=== PATIENT | male | born 1940 | race African-American/Black ===

== ENCOUNTER 2024-05-17 12:02 | Inpatient (IN) | payer OTHER ==
[2024-05-17] VITALS (30 sets, daily range): BP systolic 75–168; BP diastolic 49–102
[~2024-05-17] VITALS: Ht 182.9 cm; Wt 90.0 kg
--- NOTE | 2024-05-17 12:02 | NUR ---
PT TO ROOM VIA EMS WITH GAWESLY X2
[2024-05-17] MEDS ORDERED: SODIUM CHLORIDE 0.9% 1,000 ML IV ONE ×3 (12:25→13:25)
[2024-05-17 13:04] LABS: BASO% 0.1 % (0-3); HEMATOCRIT 41.2 % (39.0-50.0); HEMOGLOBIN 13.6 g/dl (14.0-18.0); IMMATURE GRANULOCYTES 0.3 % (0.0-5.0); LYMPH% 2.6 % (15-41); MEAN CELL VOLUME 91.6 fL CALC (80.0-100.0); MEAN CORPUSCULAR HGB 30.2 pG CALC (26.0-32.0); MONO% 0.9 % (2-13); NEUT# 14.41 thou/uL (1.82-7.42); NEUT% 96.1 % (42-76); RED BLOOD COUNT 4.5 mill/uL (4.70-6.10); RED CELL DISTRI WIDTH 13.1 % (11.5-15.5)
[2024-05-17 13:14] LABS: ALBUMIN 4.1 g/dL (3.2-5.0); CREATININE 1.6 mg/dL (0.7-1.3); POTASSIUM 4.8 mmol/l (3.5-5.1); TOTAL PROTEIN 7.7 g/dL (6.3-8.2)
[2024-05-17] MEDS ORDERED: Levofloxacin 750 mg Premix 150 ML IV ONE (13:25)
[2024-05-17] MEDS ORDERED: ACETAMINOPHEN 500 MG TAB PO ONE (13:40)
[2024-05-17] MEDS ORDERED: ALBUTEROL SUL0.083 % IN (14:29)
[2024-05-17] MEDS ORDERED: PEPCID40 MG PO (14:33)
[2024-05-17] MEDS ORDERED: LEVOTHYROXIN112 MC1 PO (14:35)
[2024-05-17] MEDS ORDERED: ASPIRINCHW 81MG PO (14:35)
[2024-05-17] MEDS ORDERED: LISINOPRIL40 MG PO (14:36)
[2024-05-17] MEDS ORDERED: METFORMIN HCL1000 MG PO (14:37)
[2024-05-17] MEDS ORDERED: AMLODIPINE BESY10 MG PO (14:37)
[2024-05-17] MEDS ORDERED: FUROSEMIDE20 MG PO (14:38)
[2024-05-17] MEDS ORDERED: KLOR-CON M1515 MEQ PO (14:39)
[2024-05-17] MEDS ORDERED: MONTELUKAST SOD10 MG PO (14:39)
[2024-05-17] MEDS ORDERED: ALVESCO160 MCG/AC (14:41)
[2024-05-17] MEDS ORDERED: GLIPIZIDE10 M3 PO (14:41)
[2024-05-17] MEDS ORDERED: LEVALBUTER1.25 MG/3 (14:42)
[2024-05-17] MEDS ORDERED: [UNRECOGNIZED DRUG - OTHER] OD (14:53)
[2024-05-17] MEDS ORDERED: NOVOLIN N100 UNIT (14:54)
[2024-05-17] MEDS ORDERED: LEVALBUTEROL HCL 1.25 MG/3 ML VIAL IN ONE (16:10)
--- NOTE | 2024-05-17 16:19 | NUR ---
PT TEMP ELEVATED, PROVIDER NOTIFIED.
[2024-05-17] MEDS ORDERED: IBUPROFEN 800 MG/TAB PO ONE (16:20)
[2024-05-17] MEDS ORDERED: ACETAMINOPHEN 325 MG/TAB PO PRN (16:30)
[2024-05-17] MEDS ORDERED: MAGNESIUM HYDROXIDE 30 ML UDC PO PRN (16:30)
[2024-05-17] MEDS ORDERED: SODIUM CHLORIDE 0.9% 1,000 ML IV PRN (16:30)
[2024-05-17] MEDS ORDERED: DEXTROSE 250 ML IV PRN (16:40)
[2024-05-17] MEDS ORDERED: INSULIN LISPRO 100 UNITS/ML ML SC SCH (17:00)
--- NOTE | 2024-05-17 17:55 | NUR ---
PT REPORT TO JOSE DAVIS.
[2024-05-17] MEDS ORDERED: PIPERACILLIN Sodium-Tazobactam 3.375 GM in SODIUM CHLORIDE 0.9% 100 ML IV SCH (18:00)
--- NOTE | 2024-05-17 18:20 | NUR ---
PT TRANSPORTED VIA WC TO ICU ROOM 2. VSS ON PORTABLE MONITOR. TRANSFERRED CARE OF PT.
--- NOTE | 2024-05-17 18:53 | NUR ---
PATIENT ARRIVED TO THE UNIT VIA WHEELCHAIR ACOMPAINED BY 2 GUARDS. PATIENT ALERT AND ORIENTED X 3. DENIES PAIN, CURRENTLY, HOWEVER STATES HE HAS BEEN HAVING INTERMITTENT CHEST PAIN WITH COUGH. PATIENT ORIENTED TO ROOM AND CALL COOK SYSTEM. SAFETY MEASURES IN PLACE INCLUDING BED IN LOW POSITION AND CALL LIGHT RESTING IN L HAND. WILL CONTINUE TO MONITOR PATIENT'S TEMPERATURE AND HR.
[2024-05-17] MEDS ORDERED: ALBUTEROL SULFATE 2.5 MG VIAL IN SCH (19:00)
[2024-05-17] MEDS ORDERED: [UNRECOGNIZED DRUG - REMARK] PO (19:25)
--- NOTE | 2024-05-17 20:00 | NUR ---
pt assessed, pt had a wet gown and wet paints from using urinal pt , unshakled by guard and was able to stand and remiove his pant, they were placed in a bag. pt given wash clothes with soap and water [pt washed himself sitting at bedside. new gown given . lungs clear over diminished in bases, posteriorly. and anteriorly. IV with NS going at 100cc/hr per order. clear yellow urine in urinal emptied. medicated for generalized boy opain with tylenol. pt states he has a cough non noted. robotussin administered . New sheets. bedding . call estrada and water within reach . all needs met, afebrile warm pink well perfused. new BOP cuff on left arm IV in right arm . 2 guards at bedside and pt shakled by the feet. all needs met.
[2024-05-17] MEDS ORDERED: ENOXAPARIN SODIUM 40 MG/0.4 ML SYR SC SCH (21:00)
[2024-05-17] MEDS ORDERED: DEXTROMETHORPHAN-Guaifenesin 20-200 MG/10 ML UDC PO PRN (21:00)
--- NOTE | 2024-05-17 22:00 | NUR ---
pt rounded on no change in assessment all needs met.
[2024-05-18] VITALS (25 sets, daily range): BP systolic 97–156; BP diastolic 42–92
--- NOTE | 2024-05-18 | NUR ---
assessment unchanged abx hung , ivf NS at 100cc/hr , successfully voiding in the urinal. 2 guards at bedside NSR on monitor, all needs met. call estrada within reach. all safety measures in place.
--- NOTE | 2024-05-18 02:00 | NUR ---
assessment unchanged, 2 guards at bedside. IVF going at 100cc/ hr pt eresting with eyes closed. all needs met call estrada within reach.
--- NOTE | 2024-05-18 04:00 | NUR ---
pt assessed assessment unchanged. IVF NS gouign at 100cc / hr. pt resting with eyes closed. pt awajken easily whgen asked how he is feeling if he has paqin , no pain . all needs met. water at bedside. call estrada within reach . 2 guards at bedside . SR. all safety measures in place.
[2024-05-18 05:39] LABS: HEMATOCRIT 35.9 % (39.0-50.0); MEAN CELL VOLUME 92.8 fL CALC (80.0-100.0); MEAN CORPUSCULAR HGB CONC 33.4 g/dL CAL (32.0-36.0); RED BLOOD COUNT 3.87 mill/uL (4.70-6.10); RED CELL DISTRI WIDTH 13.5 % (11.5-15.5)
[2024-05-18 05:55] LABS: BILIRUBIN, TOTAL 0.7 mg/dL (0.2-1.3); MAGNESIUM 1.9 mg/dL (1.6-2.3); POTASSIUM 4.1 mmol/l (3.5-5.1)
[2024-05-18] MEDS ORDERED: LEVOTHYROXINE SODIUM 112 MCG/TAB PO SCH (06:00)
--- NOTE | 2024-05-18 06:00 | NUR ---
rounded on pt nmedicated , all needs met
[2024-05-18 06:02] LABS: ALBUMIN 2.7 g/dL (3.2-5.0); TOTAL PROTEIN 5.4 g/dL (6.3-8.2)
--- NOTE | 2024-05-18 07:47 | NUR ---
PATIENT SITTING UP IN BED. 2 GUARDS AT BEDSIDE. PATIENT ALERT AND ORIENTED X 4. C/O INT CHEST PAIN OF A 8 D/T COUGHING. NO CURRENT PAIN AT THIS TIME. LUNG WHEEZES/COARSE NOTED TO ASCULTATION. BREATHING LABORED ON 4L NC. LAST BM 05/16. GLU 242. ST ON THE MONITOR. SAFETY MEASURES IN PLACE INCLUDING BED IN LOW POSITION AND CALL LIGHT RESTING NEXT TO L HAND. NO APPARENT DISTRESS NOTED. WILL CONTINUE TO MONITOR PATIENT'S TEMPERATURE AND SOB W/ EXERTION.
--- NOTE | 2024-05-18 08:58 | NUR ---
RT AT BEDSIDE. PATIENT CHANGED TO HFNC AT 8L HUMIDIFIED.
[2024-05-18] MEDS ORDERED: ASPIRIN 81 MG/TAB PO SCH (09:00)
--- NOTE | 2024-05-18 09:00 | NUR ---
PRELIMINARY BLOOD CULTURE RESULTS REPORTED TO DR BARAHONA. PT ON ZOSYN AND VANCO. FOLLOW UP WITH FINAL RESULTS
--- NOTE | 2024-05-18 10:00 | NUR ---
PATIENT LYING IN BED ON L SIDE. GUARDS AT BEDSIDE. VITAL SIGNS STABLE. WILL CONTINUE WITH PLAN OF CARE.
--- NOTE | 2024-05-18 10:32 | NUR ---
CALL RECEIVED FROM BIANCA GUERRERO AT [phone] FOR UPDATE. UPDATE GIVEN. PER STAFF, THE [facility] AT THE FACILITY IS CLOSED SO IF PATIENT IS TO BE DISCHARGED WITH OXYGEN, PLEASE NOTIFY STAFF HE WILL HAVE TO BE TRANSFERRED TO ANOTHER FACILITY.
[2024-05-18] MEDS ORDERED: PIPERACILLIN Sodium-Tazobactam 4.5 GM in SODIUM CHLORIDE 0.9% 100 ML IV SCH (12:00)
[2024-05-18] MEDS ORDERED: PIPERACILLIN Sodium-Tazobactam 3.375 GM in SODIUM CHLORIDE 0.9% 100 ML IV SCH (12:00)
--- NOTE | 2024-05-18 12:15 | NUR ---
ROUNDING COMPLETE. PATIENT NOTED TO BE AFEBRILE AT 101.4, WILL MEDICATE ACCORDING TO EMAR. DENIES ANY CONCERNS AT THIS TIME. WILL CONTINUE WITH PLAN OF CARE.
--- NOTE | 2024-05-18 12:28 | NUR ---
S: BRADLEY NASCIMENTO is a 83 M who presents with ACUTE RESPIRATORY FAILURE WITH HYPOXIA, SEVERE SEPSIS, PNEUMONIA INVOLVING RIGHT LUNG, AND GRAM POSITIVE BACTEREMIA. He has a history of DIABETES, ASTHMA, HYPOTHYROIDISM, AND HYPERTENSION. All medications in patient's chart were reviewed. O: VS: BP 120/59, P 106, RR 28,T 101.4 F W 90kg, HT72 IN, Scr= 1,CrCl= 67.7ml/min A: Blood culture PENDING IS SHOWING 4/4 G+COCCI SPUTUM CULTURE IS PENDING P: Patient is on ZOSYN 4.5GM IV Q6H. Vancomycin ordered for pharmacy to dose. Start Vancomycin 1GM IV Q12H. Vancomycin trough is drawn before the 4th dose on 05/20/24 @0000. Vancomycin goal trough is between 15-20 mcg/ml. Pharmacy will follow and or advise on antibiotics use as needed.
[2024-05-18] MEDS ORDERED: VANCOMYCIN HCL 1 GM in SODIUM CHLORIDE 0.9% 250 ML IV SCH (12:30)
--- NOTE | 2024-05-18 13:57 | NUR ---
PATIENT TEMP DECREASED FROM 100.4 TO 100. DENIES CONCERNS AT THIS TIME. WILL CONTINUE TO MONITOR.
--- NOTE | 2024-05-18 16:37 | NUR ---
PATIENT LYING IN BED. GUARDS AT BEDSIDE. ST ON THE MONITOR. 100 mL OF YELLOW URINE NOTED IN URINAL. TEMPERATURE ELEVATED AT 101.3, DR. MOURA NOTIFIED. VERBAL GIVEN FOR MOTRIN 600MG ONE TIME DOSE. NO OTHER CONCERNS AT THIS TIME. WILL CONTINUE TO MONITOR TEMPERATURE.
[2024-05-18] MEDS ORDERED: IBUPROFEN 600 MG/TAB PO SCH (17:00)
--- NOTE | 2024-05-18 18:24 | NUR ---
ROUNDING COMPLETE. PATIENT DENIES CONCERNS AT THIS TIME. TEMP REASSESSMENT 99. WILL CONTINUE TO MONITOR
--- NOTE | 2024-05-18 19:50 | NUR ---
CPT DONE TO POSTERIOR RIGHT LUNG MURCIA. NO DISTRESSED NOTED. NON-PRODUCTVE COUGH
--- NOTE | 2024-05-18 20:00 | NUR ---
pt assessed , pt sleeping , awaken easily to voice. 2 guards at bedside , oxygen on , IVF going at 100cc HR iV intact , urinal and water at bedside . call cell within reach prisoners feet shakeled. all needs met . afebrile
--- NOTE | 2024-05-18 22:00 | NUR ---
assessment unchagned. all needs met. resting comfortbaly with eyes closed.
[2024-05-19] VITALS (24 sets, daily range): BP systolic 108–145; BP diastolic 38–78
--- NOTE | 2024-05-19 | NUR ---
pt assessment unchanged . resting comfoertably eyes closed , 2 guards
--- NOTE | 2024-05-19 02:00 | NUR ---
assessmennt unchanged, resting comfortbaly, eytes closed ivf going at 100cc/hr , on 2lNC
--- NOTE | 2024-05-19 04:00 | NUR ---
assessment unchanged, guards at bedside, NSR
[2024-05-19 05:22] LABS: HEMATOCRIT 36.7 % (39.0-50.0); HEMOGLOBIN 12.1 g/dl (14.0-18.0); MEAN CELL VOLUME 93.1 fL CALC (80.0-100.0); MEAN CORPUSCULAR HGB 30.7 pG CALC (26.0-32.0); RED BLOOD COUNT 3.94 mill/uL (4.70-6.10); RED CELL DISTRI WIDTH 13.6 % (11.5-15.5)
[2024-05-19 05:33] LABS: ALBUMIN 2.5 g/dL (3.2-5.0); CREATININE 0.8 mg/dL (0.7-1.3); MAGNESIUM 1.7 mg/dL (1.6-2.3); POTASSIUM 3.9 mmol/l (3.5-5.1); TOTAL PROTEIN 5.3 g/dL (6.3-8.2)
--- NOTE | 2024-05-19 05:53 | NUR ---
pt assessed assessment unchaged, 2 guards at bedside synthroid given afebrile. IVF at 100cc/hr 2L NC. call estrada within reach all needfs met, fluids to drink at bedside.
--- NOTE | 2024-05-19 07:35 | NUR ---
Report received from shift supervisor rn nurse. Per nurse, patient had fevers overnight which resolved with tylenol. Patient is resting in bed, denies any pain. A&Ox4, on 6L NC, NSR on tele monitor. RT at bedside performing chest PT. All needs addressed, call light within reach.
--- NOTE | 2024-05-19 07:55 | NUR ---
Tele health consult placed for ID.
[2024-05-19] MEDS ORDERED: ACETYLCYSTEINE 20% 200 MG/ML SDV IN SCH (09:00)
[2024-05-19] MEDS ORDERED: cefTRIAXone SODIUM 2 GM in SODIUM CHLORIDE 0.9% 100 ML IV SCH (10:00)
--- NOTE | 2024-05-19 10:00 | NUR ---
Patient is resting in bed, denies any pain. A&OX4, on 6L NC, VS WNL, NSR on tele monitor, IV fluids running as ordered. 2 guards at bedside. All needs addressed, call light and urinal within reach.
[2024-05-19] MEDS ORDERED: AZITHROMYCIN 500 MG in SODIUM CHLORIDE 0.9% 250 ML IV SCH (10:30)
[2024-05-19] MEDS ORDERED: IPRATROPIUM-Albuterol 0.5MG-2.5MG/3 ML NEB SCH (11:00)
--- NOTE | 2024-05-19 12:00 | NUR ---
Echo done at bedside. Patient is resting in bed, denies any pain. A&Ox4, on 8L NC and tolerating, NSR on tele monitor, VS WNL, IV fluids running as ordered. All needs addressed, call light within reach. 2 guards at bedside.
--- NOTE | 2024-05-19 14:00 | NUR ---
Patient is sleeping, does not appear to be in any distress. Temp has decreased after tylenol was given. Patient is on 8L NC, NSR on tele monitor, VS WNL, IV fluids running as ordered. All needs addressed, call light and urinal within reach. 2 guards remain at bedside.
--- NOTE | 2024-05-19 16:00 | NUR ---
Patient is resting in bed, denies any pain. A&Ox4, on room air, ST on tele monitor, patient has a fever, ice packs applied. VS WNL, IV fluids running as ordered. 2 guards remain at bedside. All needs addressed, call light and urinal within reach.
--- NOTE | 2024-05-19 18:00 | NUR ---
Patient is resting in bed, denies any pain. A&Ox4, on 7L NC, ST on tele monitor, VS WNL, IV fluids running as ordered. All needs addressed, call light and urinal within reach. 2 guards remain at bedside.
--- NOTE | 2024-05-19 20:00 | NUR ---
RT @ BEDSIDE DOING CHEST PT. PT HAS NO COMPLAINTS. 2 GUARDS @ BEDSIDE, PT IN ANKLE SHACKLES. CALL LIGHT IN REACH
[2024-05-19] MEDS ORDERED: LATANOPROST 2.5 ML BTL OU SCH (21:00)
--- NOTE | 2024-05-19 22:00 | NUR ---
PT RESTING , HAS NO COMPLAINTS. NO FEVER NOTED. O2 SAT IS 95% ON 7L. 2 GUARDS @ BEDSIDE, PT HAS CUFFS ON ANKLES. CALL LIGHT IN REACH
[2024-05-20] VITALS (22 sets, daily range): BP systolic 111–148; BP diastolic 51–85
--- NOTE | 2024-05-20 00:31 | NUR ---
PT RESTING COMFORTABLY. LINENS CHANGED. INCONT VOID EPISODE. PT HAS NO COMPLAINTS.02 SAT IS 92%. TEMP 99.1. 2 GUARDS @ BEDSIDE, PT IN ANKLE CUFFS. CALL LIGHT IN REACH
--- NOTE | 2024-05-20 02:05 | NUR ---
PT RESTING COMFORTABLY. 2 GUARDS @ BEDSIDE, PT IN ANKLE SHACKLES. NS @ 100ML/HR. V/S STABLE. CALL LIGHT IN REACH
[2024-05-20 05:20] LABS: BASO% 0.2 % (0-3); EOS% 0.5 % (0-8); HEMATOCRIT 38.8 % (39.0-50.0); HEMOGLOBIN 12.4 g/dl (14.0-18.0); IMMATURE GRANULOCYTES 4.8 % (0.0-5.0); LYMPH% 8.4 % (15-41); MEAN CELL VOLUME 94.6 fL CALC (80.0-100.0); MEAN CORPUSCULAR HGB 30.2 pG CALC (26.0-32.0); MONO% 5.9 % (2-13); NEUT# 8.12 thou/uL (1.82-7.42); NEUT% 80.2 % (42-76); RED BLOOD COUNT 4.1 mill/uL (4.70-6.10); RED CELL DISTRI WIDTH 13.5 % (11.5-15.5)
--- NOTE | 2024-05-20 05:29 | NUR ---
PT RESTING COMFORTABLY. NO COMPLAINTS. LOW GRADE TEMP. NS @ 100 ML/HR. 2 GUARDS @ BEDSIDE, PT REMAINS SHACKLED @ ANKLES. O2 SAT IS 96%. V/S STABLE. CALL LIGHT IN REACH
[2024-05-20 05:41] LABS: ALBUMIN 2.5 g/dL (3.2-5.0); BILIRUBIN, TOTAL 0.8 mg/dL (0.2-1.3); CREATININE 0.8 mg/dL (0.7-1.3); MAGNESIUM 1.8 mg/dL (1.6-2.3); POTASSIUM 4.1 mmol/l (3.5-5.1); TOTAL PROTEIN 5.3 g/dL (6.3-8.2)
--- NOTE | 2024-05-20 07:15 | NUR ---
Report received from awake overnight monitor nurse. Per nurse, no events overnight. Patient is resting in bed, denies any pain. A&Ox4, on 7L NC, ST on tele monitor, VS WNL, male purwick in place, IV fluids running as ordered. All needs addressed, call light within reach. 2 guards at bedside.
--- NOTE | 2024-05-20 10:00 | NUR ---
Taking patient down for MRI. Patient is able to stand and get in wheelchair. On 7L NC, ST on tele monitor, VS WNL. 2 guards will accompany patient and this RN to MRI.
--- NOTE | 2024-05-20 11:00 | NUR ---
Patient went to MRI, tolerated without issue. Now sitting in recliner chair. 2 guards at bedside.
--- NOTE | 2024-05-20 12:00 | NUR ---
Patient is sitting in recliner chair eating lunch. A&Ox4, oxygen able to be weaned to 6L NC, ST on tele monitor, VS WNL, IV fluids running as ordered. All needs addressed, call light within reach. 2 guards at bedside.
--- NOTE | 2024-05-20 14:00 | NUR ---
Patient is sitting in recliner chair, denies any pain. Patient states that he feels better when he is up to the chair. A&Ox4, on 6L NC, ST on tele monitor, VS WNL, IV fluids running as ordered. All needs addressed, call light and urinal within reach. 2 guards at bedside.
--- NOTE | 2024-05-20 16:00 | NUR ---
Patient is sitting in recliner chair, denies any pain. Patient is A&Ox4, oxygen was able to be weaned to 4L NC, VS WNL, ST on tele monitor, IV fluids running as ordered. All needs addressed, call light and urinal within reach. 2 guards at bedside.
--- NOTE | 2024-05-20 16:30 | NUR ---
Patient transferred back to bed. Patient able to stand and take a few steops without assistance.
--- NOTE | 2024-05-20 18:00 | NUR ---
Patient is resting in bed, denies any pain. Patient had fever which went down with tylenol. Patient is A&Ox4, on 4L NC, VS WNL, ST on tele monitor, IV fluids running as ordered. All needs addressed, call light and urinal within reach. 2 guards at bedside.
--- NOTE | 2024-05-20 19:30 | NUR ---
CPT DONE TO POSTERIOR RIGHT LUNG MURCIA. NON-PRODUCTIVE COUGH. TOLERATED WELL.
--- NOTE | 2024-05-20 19:32 | NUR ---
PT ASSESSMENT COMPLETE. MALE PW PLACED ON CLIENT DUE TO INCONTINENCE AND URGENCY. PT COMPLAINED OF BACK PAIN. MILD TEMP OF 99.4. NEW IV STARTED ON LFA. V/S STABLE. 02 SAT IS 98% ON 4L. CALL LIGHT IN REACH
--- NOTE | 2024-05-20 22:15 | NUR ---
PT ASSISTED TO BR, HAD BM. 02 SAT DID DROP TO 80'S. CAME BACK UP ONCE PT WAS UPRIGHT IN BED. REPLACED MALE PW. PT HAS NO COMPLAINTS. V/S STABLE. CALL LIGHT IN REACH
[2024-05-21] VITALS (23 sets, daily range): BP systolic 116–149; BP diastolic 60–79
--- NOTE | 2024-05-21 00:31 | NUR ---
PT RESTING COMFORTABLY, HAS NO COMPLAINTS. O2 SAT IS 95% ON 4L. V/S STABLE, CALL LIGHT IN REACH
--- NOTE | 2024-05-21 04:23 | NUR ---
PT RESTING COMFORTABLY, NO COMPLAINTS. 2 GUARDS @ BEDSIDE, PT CUFFED @ ANKLES. O2 SAT IS 96% ON 4L. V/S STBALE, CALL LIGHT IN REACH
[2024-05-21 05:47] LABS: ALBUMIN 2.4 g/dL (3.2-5.0); BILIRUBIN, TOTAL 0.5 mg/dL (0.2-1.3); CREATININE 0.8 mg/dL (0.7-1.3); MAGNESIUM 1.8 mg/dL (1.6-2.3); POTASSIUM 4.1 mmol/l (3.5-5.1); TOTAL PROTEIN 5.2 g/dL (6.3-8.2)
[2024-05-21 05:48] LABS: BASO% 0.2 % (0-3); EOS% 1.1 % (0-8); HEMATOCRIT 37.9 % (39.0-50.0); HEMOGLOBIN 12.1 g/dl (14.0-18.0); LYMPH% 11.9 % (15-41); MEAN CORPUSCULAR HGB CONC 31.9 g/dL CAL (32.0-36.0); MONO% 7.7 % (2-13); NEUT# 7.08 thou/uL (1.82-7.42); NEUT% 71.9 % (42-76); RED BLOOD COUNT 4.03 mill/uL (4.70-6.10); RED CELL DISTRI WIDTH 13.6 % (11.5-15.5)
[2024-05-21 05:58] LABS: IMMATURE GRANULOCYTES 7.2 % (0.0-5.0)
--- NOTE | 2024-05-21 07:15 | NUR ---
Report received from [facility] shift nurse, per nurse no events overnight. Patient is sleeping, does not appear to be in any distress. On 4L NC, ST on tele monitor, VS WNL, male purwick in place, IV fluids running as ordered. All needs addressed, call light within reach. 2 guards at bedside.
[2024-05-21] MEDS ORDERED: CEFTRIAXONE2 GM IJ (08:56)
--- NOTE | 2024-05-21 10:06 | NUR ---
PATIENT LEFT UNIT VIA WHEELCHAIR WITH NURSE, STUDENT AND 2 GUARDS TO RADIOLOGY FOR PICC PLACEMENT.
--- NOTE | 2024-05-21 12:00 | NUR ---
Patient sitting in recliner chair, denies any pain. On 4L NC, VS WNL, ST in tele monitor, male purwick in place. Patient has PICC line to R upper arm in place. Patient tolerated procedure without issue. IV fluids running as ordered. All needs addressed, call light within reach. 2 guards at bedside.
--- NOTE | 2024-05-21 14:00 | NUR ---
Patient transferred to bed from chair. Patient able to stand and take a few steps on his own however he gets SOB. Patient is A&Ox4, on 4L NC, VS WNL, ST on tele monitor, male purwick in place, IV fluids running as ordered. All needs addressed, call light within reach. 2 guards at bedside.
--- NOTE | 2024-05-21 16:00 | NUR ---
Patient is sleeping, does not appear to be in any distress. On 4L NC, VS WNL, ST on tele monitor, male purwick in place. All needs addressed, call light within reach.
--- NOTE | 2024-05-21 18:00 | NUR ---
Patient is resting in bed, denies any pain. Patient says he doesnt have much of an appetite tonight so he did not eat dinner. Patient is A&Ox4, on 4L NC, ST on tele monitor, VS WNL, IV fluids running as ordered, male purwick in place. All needs addressed, call light within reach. 2 guards at bedside.
[2024-05-21] MEDS ORDERED: IPRATROPIUM-Albuterol 0.5MG-2.5MG/3 ML NEB SCH (19:00)
--- NOTE | 2024-05-21 19:46 | NUR ---
PT HAD LARGE BM IN BED UPON ARRIVAL TO SHIFT. ASSISTED TO BSC, CLEAN LINENS PLACED. COMPLETE BATH GIVEN TO PT. PT IS A + O TO P, P, T. ON 4L O2. SAT IS 94%. LUNG SOUNDS DIMINSHED. PT HAS NO COMPLAINTS. 2 GUARDS @ BEDSIDE, PT PLACED BACK IN ANKLE CUFFS BY GUARD PERSONNEL. V/S STABLE. CALL LIGHT IN REACH
--- NOTE | 2024-05-21 23:15 | NUR ---
PT HAD ANOTHER BM. MALE PW PLACED ON PT. PT IS CURRENTLY INCONT OF URINE AND BM. 02 SAT IS 95 ON 4L. V/S STABLE. CALL LIGHT IN REACH
[2024-05-22] VITALS (11 sets, daily range): BP systolic 130–144; BP diastolic 65–78
--- NOTE | 2024-05-22 02:00 | NUR ---
PT RESTING. 2 GUARDS @ BEDSIDE, PT CUFFED @ ANKLES. V/S STABLE, CALL LIGHT IN REACH
--- NOTE | 2024-05-22 04:00 | NUR ---
PT RESTING, HAS NO COMPLAINTS. 2 GUARDS BEDSIDE, PT CUFFED @ ANKLES. 02 SAT IS 92% ON 4L. V/S STABLE. CALL LIGHT IN REACH
--- NOTE | 2024-05-22 05:19 | NUR ---
PT HAD LARGE, SOFT BM. SMALL INCONT AMOUNT, ASSISTED TO BSC TO FINISH. RICK CARE COMPLETED. MALE PW REPLACED. PT O2 SAT DROPPED TO 80'S DURING BSC BACK TO BED TRANSFER. CURRENT O2 SAT IS 95% ON 4L. PT WAS PLACED BACK I [place] CUFFS BY 2 GUARDS @ BEDSIDE. V/S STABLE. CALL LIGHT IN REACH
[2024-05-22 05:46] LABS: BASO% 0.4 % (0-3); EOS% 1.1 % (0-8); HEMATOCRIT 36.8 % (39.0-50.0); HEMOGLOBIN 12.2 g/dl (14.0-18.0); LYMPH% 12.6 % (15-41); MEAN CELL VOLUME 93.4 fL CALC (80.0-100.0); MEAN CORPUSCULAR HGB CONC 33.2 g/dL CAL (32.0-36.0); MONO% 6.2 % (2-13); NEUT# 9.14 thou/uL (1.82-7.42); NEUT% 72.2 % (42-76); RED BLOOD COUNT 3.94 mill/uL (4.70-6.10); RED CELL DISTRI WIDTH 13.4 % (11.5-15.5)
[2024-05-22 06:00] LABS: IMMATURE GRANULOCYTES 7.5 % (0.0-5.0)
[2024-05-22 06:02] LABS: ALBUMIN 2.5 g/dL (3.2-5.0); BILIRUBIN, TOTAL 0.6 mg/dL (0.2-1.3); CREATININE 0.8 mg/dL (0.7-1.3); MAGNESIUM 1.9 mg/dL (1.6-2.3); POTASSIUM 4.1 mmol/l (3.5-5.1); TOTAL PROTEIN 5.4 g/dL (6.3-8.2)
--- NOTE | 2024-05-22 07:35 | NUR ---
PT LAYING IN BED AWAKE, A&O X 3, PT DENIES ANY PAIN AT THIS TIME, RESP. EVEN AND UNLABORED, LUNG SOUNDS ARE DIMINISHED, PT IS ON 4L OF O2 VIA NC, NORMAL S1 S2 HEART SOUNDS, ABD DISTENDED AND SOFT WITH ACTIVE BOWEL SOUNDS, STRONG RADIAL AND PEDAL PULSES, R UPPER ARM PICC IN PLACE WITH IV FLUIDS INFUSING AT PRESCRIBED RATE, PURE WICK IN PLACE DRAINING CLEAR YELLOW URINE, 2 GUARDS AT BED SIDE, SAFETY MEASURES REINFORCED, PT REMINDED TO CALL FOR ASSISTANCE, CALL COOK WITHIN REACH
--- NOTE | 2024-05-22 07:45 | NUR ---
SETUP ASSISTANCE PROVIDED WITH AM MEAL, PT DENIED ANY OTHER NEEDS AT THIS TIME, CALL COOK WITHIN REACH
--- NOTE | 2024-05-22 08:37 | NUR ---
DR MIRELES AT BEDSIDE DISCUSSING PLAN OF CARE
[2024-05-22] MEDS ORDERED: PREDNISONE50 MG PO (08:42)
[2024-05-22] MEDS ORDERED: methylPREDNISolone Sod Succ 40 MG/ML SDV IV SCH (09:00)
--- NOTE | 2024-05-22 09:45 | NUR ---
PT ASSISTED TO THE BSC AND BACK TO BED, PT AMBULATES WITH A SLOW STEADY GAIT, PT TOLERATED WELL, PT REMINDED TO CALL FOR ASSISTANCE CALL COOK WITHIN REACH
--- NOTE | 2024-05-22 11:35 | NUR ---
SETUP ASSISTANCE PROVIDED WITH LUNCH TRAY, PT DENIES ANY NEEDS AT THIS TIME, PT REMINDED TO CALL FOR ASSISTANCE, CALL COOK WITHIN REACH
--- NOTE | 2024-05-22 13:12 | NUR ---
PT LAYING IN BED RESTING WITH EYES CLOSED, NO S/S OF DISTRESS, CALL COOK WITHIN REACH
--- NOTE | 2024-05-22 15:25 | NUR ---
Discharge instructions given. Patient verbalizes understanding of same. [facility] All belongings sent with pt.
--- NOTE | 2024-05-22 15:35 | NUR ---
NURSE ATTEMPTED TO CALL REPORT TO AMITA GUERRERO ([phone]) WAS UNABLE TO GET ANYONE ON THE PHONE.
== END 2024-05-22 15:25 | DRG 871 ==
LOC: ED 12:02 → ED-I 13:52 → ED 14:06 → MS2 14:07 → ICU 16:33 → MS2 16:33 → ICU 16:34
PROVIDERS: Nurse Practitioner Family; Student in an Organized Health Care Education/Training Program; ADMIT Internal Medicine; ATTEND Internal Medicine
PROC: 02HV33Z Insertion of Infusion Device into Superior Vena Cava, Percutaneous Approach (ICD-10-PCS; principal; 2024-05-21)
PROC: B518ZZA Fluoroscopy of Superior Vena Cava, Guidance (ICD-10-PCS; 2024-05-21)
DX: A40.3 Sepsis due to Streptococcus pneumoniae (principal); J13 Pneumonia due to Streptococcus pneumoniae; J96.01 Acute respiratory failure with hypoxia; R65.20 Severe sepsis without septic shock; N17.9 Acute kidney failure, unspecified; J44.0 Chronic obstructive pulmonary disease with (acute) lower respiratory infection; E11.9 Type 2 diabetes mellitus without complications; I10 Essential (primary) hypertension; M51.27 Other intervertebral disc displacement, lumbosacral region; E03.9 Hypothyroidism, unspecified; Z79.84 Long term (current) use of oral hypoglycemic drugs; Z79.4 Long term (current) use of insulin; Z20.822 Contact with and (suspected) exposure to COVID-19
CPT/HCPCS: J0456; J1650